=== PATIENT | female | born 2000 ===

== ENCOUNTER → 2021-12-21 | Outpatient (CLI) | payer OTHER ==
--- NOTE | 2021-12-21 09:41 | Diagnostic Imaging Report ---
INDICATION: Positive TB test. TIME OF EXAM: 9:32 AM No prior studies are available for comparison. FINDINGS: Heart size is normal. Lungs are clear. No infiltrates are seen. The pulmonary vascularity is normal. No effusion or pneumothorax is seen. No findings to suggest tuberculosis are identified. IMPRESSION: Normal chest. Dictated by: Dictated on workstation # [id number]
== END ==
LOC: RAD 09:18
PROVIDERS: ATTEND Nurse Practitioner Family
DX: R76.11 Nonspecific reaction to tuberculin skin test without active tuberculosis (principal)
CPT/HCPCS: 71045